=== PATIENT | female | born 1955 | race Caucasian/White ===

== ENCOUNTER 2024-05-04 03:02 | Emergency (ER) | payer OTHER ==
--- OUTSIDE RECORDS SUMMARY | 2024-05-04 03:06 | XMS REPORT | Clinical Summary ---
Author Name Unknown Organization [facility] Address [address] [place] [address] Care Team Providers Care Fashion Adviser Name Role Phone Courtney Will MD Unavailable [phone] Ariana Ewing MD Unavailable [phone] Hermes Barnhart MD Primary Care Provider [phone] Ariana Ewing MD Unavailable [phone] Gary Ross MD Unavailable [phone] Rhona Shoemaker MD Unavailable [phone] Beny Gamboa MD Unavailable [phone] Allergies No known active allergies Medications * This document contains information received from the source organization and may not represent a complete record from that organization. lisinopril (PRINIVIL,ZESTR IL) 10 mg tablet Take 1 tablet (10 mg) by mouth daily. 2 Active levothyroxine (SYNTHROID, LEVOTHROID) 75 mcg tablet Take 1 tablet (75 mcg) by mouth daily. 2 Active Synjardy XR 25-1,000 mg TBph Take 1 tablet by mouth daily. Currently on hold; Pt reports last dose 10/08 2 Active escitalopram (LEXAPRO) 20 mg tablet Take 0.5 tablets (10 mg) by mouth every evening. Active calcium carbonate-vitam in D3 500 mg - 200 units (1,250 mg calcium carbonate) tablet Take 1 tablet by mouth 2 (two) times a day with meals. Active multivitamin capsule Take 1 capsule by mouth daily. Active linaGLIPtin (Tradjenta) 5 mg tab Take 1 tablet (5 mg) by mouth daily. Active anastrozole (ARIMIDEX) 1 mg tabletIndicatio ns:Lobular carcinoma, NOS of upper-inner quadrant of breast <Female; Left>,Estrogen receptor positive status (ER+) Take 1 tablet (1 mg) by mouth daily. 90 tablet 3 4 Active anastrozole (ARIMIDEX) 1 mg tabletIndicatio ns:Lobular carcinoma, NOS of upper-inner quadrant of breast <Female; Left>,Estrogen receptor positive status (ER+) TAKE 1 TABLET BY MOUTH EVERY DAY 90 tablet 3 3 11/22/19 24 Discontinu ed(Reorder ) Rybelsus 7 mg tablet 1 tablet at least 30 minutes before first food, beverage or other oral medicine of the day Orally Once a day for 90 days 4 03/09/20 24 Discontinu ed(Alterna te therapy) anastrozole (ARIMIDEX) 1 mg tabletIndicatio ns:Lobular carcinoma, NOS of upper-inner quadrant of breast <Female; Left>,Estrogen receptor positive status (ER+) Take 1 tablet (1 mg) by mouth daily. 90 tablet 3 4 12/02/19 24 Discontinu ed(Reorder ) Active Problems Problem Noted Date Diagnosed Date History of external beam radiation therapy 08/05 Hypertension 09/17/2021 Cardiac murmur 09/17/2021 Type 2 diabetes mellitus with hyperglycemia 08/28 Mild depression 09/17/2021 Estrogen receptor positive status (ER+) 08/20/19 Overview (08/19/2021): Added automatically from request for surgery [id number] Other abnormal and inconclus selena findings on diagnostic imaging of breast 07/30/2021 Lobular carcinoma, NOS of up per-inner quadrant of breast <Female; Left> 07/30/2021 Cancer Staging:Clinical stage from 06/03/2021:Stage IB(cT2, cN0, cM0, G2, ER+, OR+, HER2-) - Signed by Jeovany Castellanos NP on 10/31/2021 Pathologic stage from 10/13/2021: pT1c, pN1a, cM0, G2, ER: Not Assessed, OR: Not Assessed, HER2: Not Assessed - Signed by Jeovany Castellanos NP on 10/31/2021 Encounters * This document contains information received from the source organization and may not represent a complete record from that organization. Date Type Department Care Team Description 03/09/2024 1:00 PM HOUSING COORDINATOR Follow-Up [facility] [place] [facility] [address] [place] [address], 5th [place] [address] Siena Garcia, PAROLE HEARING OFFICER Lobular carcinoma, NOS of upper-inner quadrant of breast <Female; Left> (Primary Dx) 03/09/2024 10:22 AM HOUSING COORDINATOR - 03/09/2024 11:59 PM HOUSING COORDINATOR Hospital Encounter Nuclear Medicine [address] [place] [address], 6th Floor, [place] [address] Siena Garcia, PAROLE HEARING OFFICER Lobular carcinoma, NOS of upper-inner quadrant of breast <Female; Left>; intermediate current use of aromatase inhibitor; Osteoporosis screening Discharge Disposition: Home 03/09/2024 Travel 12/02/2023 Orders Only Breast [facility] [address] [place] [address], 5th Floor [facility] [place] [address] Siena Garcia, PAROLE HEARING OFFICER Lobular carcinoma, NOS of upper-inner quadrant of breast <Female; Left>; Estrogen receptor positive status (ER+) 11/22/2023 Orders Only Breast [facility] [address] [place] [address], 5th Floor [facility] [place] [address] Rhona Lofton, PAROLE HEARING OFFICER Lobular carcinoma, NOS of upper-inner quadrant of breast <Female; Left>; Estrogen receptor positive status (ER+) 11/22/2023 Refill Breast [facility] [address] [place] [address], 5th [place] [address] Gurvinder Matute, RN Lobular carcinoma, NOS of upper-inner quadrant of breast <Female; Left>; Estrogen receptor positive status (ER+) 11/16/2023 Refill [facility] [place] [facility] [address] [place] [address], 5th [place] [address] Hermes Barnhart MD Lobular carcinoma, NOS of upper-inner quadrant of breast <Female; Left>; Estrogen receptor positive status (ER+) 08/05/2023 10:23 AM CDT - 08/05/2023 11:59 PM CDT Hospital Encounter Radiation Oncology [address] [place] [address], 1st [place] [address] Beny Gamboa MD Lobular carcinoma, NOS of upper-inner quadrant of breast <Female; Left>; History of external beam radiation therapy Discharge Disposition: Home 08/05/2023 9:24 AM CDT - 08/05/2023 10:22 AM CDT Hospital Encounter Breast Imaging [address] [place] [address], 5th Floor [facility] [place] [address] Liz Sorto, AWA Lobular carcinoma, NOS of upper-inner quadrant of breast <Female; Left>; History of external beam radiation therapy Discharge Disposition: Home 08/05/2023 8:23 AM CDT - 08/05/2023 9:23 AM CDT Hospital Encounter Breast Imaging [address] [place] [address], 5th Floor [facility] [place] [address] Liz Sorto, AWA Lobular carcinoma, NOS of upper-inner quadrant of breast <Female; Left>; History of external beam radiation therapy Discharge Disposition: Home 08/05/2023 Orders Only [facility] [place] [facility] [address] [place] [address], 5th [place] [address] Siena Garcia, PAROLE HEARING OFFICER Lobular carcinoma, NOS of upper-inner quadrant of breast <Female; Left> (Primary Dx); 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 OR MASTECTOMY PARTIAL 10/13/2021 Breast/Left Procedure: SEGMENTAL MASTECTOMY - MAG SEED LOC; Surgeon: Ariana Ewing MD; Location: [facility]; Service: BREAST OR INTRAOP SENTINEL LYMPH NODE ID W/DYE INJECTION 10/13/2021 Axilla/Left Procedure: INTRAOPERATIVE LYMPHATIC MAPPING; Surgeon: Ariana Ewing MD; Location: [facility]; Service: BREAST OR BX/EXC LYMPH NODE OPEN DEEP AXILLARY NODE 10/13/2021 Axilla/Left Procedure: SENTINEL NODE BIOPSY - AXILLA; Surgeon: Ariana Ewing MD; Location: [facility]; Service: BREAST OR ADJACENT TISSUE TRANSFER/REARGMT TRUNK 10 SQCM/< 10/13/2021 Breast/Left Procedure: REARRANGEMENT OF ADJACENT TISSUE FOR REPAIR OF DEFECT OF TRUNK; Surgeon: Gary Ross MD; Location: [facility]; Service: PLS - PLASTIC SURGERY OR MASTOPEXY 10/13/2021 Breast/Bilateral Procedure: MASTOPEXY; Surgeon: Gary Ross MD; Location: [facility]; Service: PLS - PLASTIC SURGERY Medical History Medical History Date Comments Hypertension 2200 Control Disorder of thyroid gland 2014 Graves Depressive disorder 2017 Control Psoriasis 1995 Hands Cyst of breast rt Diabetes mellitus 2010 2017 Breast cancer Family History * Patient is adopted Medical History Relation Name Comments Lung cancer Maternal Grandfather Cancer Maternal Grandmother Possibl e colon cancer Stomach cancer Paternal Grandmother Cecily Zamora Diagn osed in her 70s Breast cancer Sister 1 Kun Corona Thyroid cancer Sister 1 Kun Corona Ovarian cancer Neg Hx Relation Name Status Comments Father Granddaughter Alive Grandson Alive Half-Brother Alive Maternal Grandfather Maternal Grandmother Mother Niece 1 Alive Niece 2 (Age 27) Niece 3 Alive Other 1 Alive Other 2 Alive Paternal Grandmother Cecily Zamora (Age 70s) Sister 1 Kun Corona (Age 37) Sister 2 Alive Son 1 Alive Son 2 (Age 29) Social History Tobacco Use Types Packs/Day Years Used Date Smoking Tobacco: Never Smokeless Tobacco: Never Alcohol Use Standard Drinks/Week Comments Yes 0 (1 standard drink = 0.6 oz pur e alcohol) Light beer Education Answer Date Recorded What is the highest level of school you have completed or the highest degree you have received? 12th grade 08/13/2021 Comments No Sex and Gender Information Value Date Recorded Sex Assigned at Female 07/28/2021 3:57 PM CDT Legal Sex Female 4:52 PM CDT Gender Identity Female 07/28/2021 3:57 PM CDT Sexual Orientation Not on file Occupation Industry Job Start Date Job End Date Not on file Not on file Not on file Not on file Obstetrics History Para Term AB IAB SAB Ectopic Multiple Livin g Live Births 2 2 1 2 2 Date Outcome GA Total Labor Labor/2nd/3rd Weight Sex Type Anes PTL Naomi A1 A5 Name Clin 1982 Para M CS-LT ranv Living 1985 Term M CS-LT ranv Living Comments Menarche: 15 Parity: 25 OBC: None Hormonal Therapy: None Last Pap: 06/2021 (OS) Abnormal Pap: None Last Jorge: 06/03/2021 (OS) Last Colon: 2018 (OS), per patient polyps return in 3 years for follow up 9 months Bra Size 36D Last Filed Vital Signs Vital Sign Reading Time Taken Comments Blood Pressure 112/70 03/09/2024 12:20 PM HOUSING COORDINATOR Pulse 83 03/09/2024 12:20 PM HOUSING COORDINATOR Temperature 36.7 C (98.1 F) 03/09/2024 12:[address] Respiratory Rate 20 03/09/2024 12:20 PM HOUSING COORDINATOR Oxygen Saturation 98% 03/09/2024 12:20 PM HOUSING COORDINATOR Inhaled Oxygen Concentration - - Weight 57 kg (125 lb 10.6 oz) 03/09/2024 10:50 A M HOUSING COORDINATOR Height 152.4 cm (5') 03/09/2024 10:50 AM HOUSING COORDINATOR Body Mass Index 24.54 03/09/2024 10:50 AM HOUSING COORDINATOR Plan of Treatment Upcoming Encounters Date Type Department Care Team (Late st Contact Info) Description 08/10/2024 2:00 PM CDT Appointment Breast Imaging [address] [facility], 5th [place] [address] Siena Garcia M, PAROLE HEARING OFFICER [address] [place] [address] [email or web address] 08/10/2024 3:00 PM CDT Appointment Breast Imaging [address] [facility], 5th [place] [address] Siena Garcia, PAROLE HEARING OFFICER [address] [place] [address] [email or web address] 08/10/2024 4:00 PM CDT Follow-Up [facility] - [facility] Oncology [address] [facility], 5th [place] [address] Siena Garcia, PAROLE HEARING OFFICER [address] [place] [address] [email or web address] Maintenance Due Date Last Done Comments Pneumococcal Vaccine: 50+ Ye ars (1 of 1 - PCV) 12/20/2007 COVID-19 Vaccine (2023-2 5 season) 2023 07/21/2021, 01/31/2021, 06/11/2020, Additional history exists Influenza Vaccine (#1) 2023 Procedures Procedure Name Priority Date/Time Associated Diagnosis Comments DEXA BONE MINERAL DENSITY BOTH HIPS AND SPINE Routine 03/09/2024 11:06 AM HOUSING COORDINATOR Lobular carcinoma, NOS of upper-inner quadrant of breast <Female; Left> 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 Osteoporosis screening US CHEST Routine 08/05/2023 10:17 AM CDT Lobular carcinoma, NOS of upper-inner quadrant of breast <Female; Left> History of external beam radiation therapy US BREAST COMPLETE LEFT Routine 08/05/2023 10:17 AM CDT Lobular carcinoma, NOS of upper-inner quadrant of breast <Female; Left> History of external beam radiation therapy MAMMO DIGITAL DIAGNOSTIC BILATERAL W SOCRATES Routine 08/05/2023 9:23 AM CDT Lobular carcinoma, NOS of upper-inner quadrant of breast <Female; Left> History of external beam radiation therapy after 05/05/2023 Results * NM Bone Mineral Density Both Hips and Spine (03/09/2024 11:06 AM HOUSING COORDINATOR) Anatomical Region Laterality Modality Spine Nuclear Medicine 03/09/2024 11:0 8 AM HOUSING COORDINATOR Impressions 03/09/2024 11:10 AM HOUSING COORDINATOR Osteopenia based on measurements of the lumbar spine. Statistically significant decrease in bone mineral density within bilateral total hips and right femoral neck since the prior study dated 03/11/2023. I personally reviewed these image(s) along with the resident's/fellow's interpretations, certify that if a procedure was performed I was physically present, and agree with the final report. Narrative 03/09/2024 11:10 AM HOUSING COORDINATOR FULL RESULT: Examination: Bone Mineral Density (DXA), 03/09/2024 Clinical History: 68-year-old postmenopausal female with breast carcinoma. Indication: Assessment of bone mineral density.. Comparison: Bone mineral density study dated 03/11/2023. Technique: Bone mineral density was obtained using Hologic dual-energy X-ray absorptiometry. Findings: The findings are provided in the below table(s). Bone Density: Region Exam Date BMD T- Z- g/cm2 Score Score AP Spine (L1-L4) 03/09/2024 0.886 -1.5 0.4 Femoral Neck (Left) 03/09/2024 0.784 -0.6 1.0 Total Hip (Left) 03/09/2024 0.873 -0.6 0.7 Femoral Neck (Right) 03/09/2024 0.780 -0.6 1.0 Total Hip (Right) 03/09/2024 0.853 -0.7 0.6 For postmenopausal women and men age 50 and over, the World Health Organization criteria for BMD interpretation classify patients as: Normal (T-score at or above -1.0), Osteopenia (T-score between -1.0 and -2.5), or Osteoporosis (T-score at or below -2.5). Previous Exams: Region Exam Age BMD T-score BMD Change vs Date g/cm2 Baseline Previous AP Spine (L1-L4) 03/09/2024 68 0.886 -1.5 -4.0%* -2.4% 03/11/2023 67 0.908 -1.3 -1.7% -1.7% 12/12/2021 65 0.923 -1.1 Total Hip(Left) 03/09/2024 68 0.873 -0.6 -4.8%* -5.8%* 03/11/2023 67 0.927 -0.1 1.1% 1.1% 12/12/2021 65 0.917 -0.2 Femoral Neck(Left) 03/09/2024 68 0.784 -0.6 3.8% -2.4% 03/11/2023 67 0.803 -0.4 6.4%* 6.4%* 12/12/2021 65 0.755 -0.9 Total Hip(Right) 03/09/2024 68 0.853 -0.7 -3.8%* -5.3%* 03/11/2023 67 0.901 -0.3 1.5% 1.5% 12/12/2021 65 0.887 -0.4 Femoral Neck(Right) 03/09/2024 68 0.780 -0.6 -2.3% -6.7%* 03/11/2023 67 0.836 -0.1 4.7% 4.7% 12/12/2021 65 0.798 -0.5 *Denotes significance at 95% confidence level, site specific LSC for AP Spine = 0.029 g/cm2, site specific LSC for Total Hip = 0.033 g/cm2, site specific LSC for Femoral Neck = 0.045 g/cm2, LSC for 1/3 Forearm = 0.023 g/cm2 Procedure Note Pavan Galeas MD - 03/09/2024 FULL RESULT: Examination: Bone Mineral Density (DXA), 03/09/2024 Clinical History: 68-year-old postmenopausal female with breastcarcinoma. Indication: Assessment of bone mineral density.. Comparison: Bone mineral density study dated 03/11/2023. Technique: Bone mineral density was obtained using Hologic [id number]-[id number]-gib absorptiometry. Findings: The findings are provided in the below table(s). Bone Density: Region Exam Date BMD T- Z- g/cm2 Score Score AP Spine (L1-L4) 03/09/2024 0.886 -1.5 0.4 Femoral Neck (Left) 03/09/2024 0.784 -0.6 1.0 Total Hip (Left) 03/09/2024 0.873 -0.6 0.7 Femoral Neck (Right) 03/09/2024 0.780 -0.6 1.0 Total Hip (Right) 03/09/2024 0.853 -0.7 0.6 For postmenopausal women and men age 50 and over, the World Health Organization criteria for BMD interpretation classify patients as: Normal (T-score at or above -1.0), Osteopenia (T-score between -1.0 and -2.5), or Osteoporosis (T-score at or below -2.5). Previous Exams: Region Exam Age BMD T-score BMD Change vs Date g/cm2 Baseline Previous AP Spine (L1-L4) 03/09/2024 68 0.886 -1.5 -4.0%* -2.4% 03/11/2023 67 0.908 -1.3 -1.7% -1.7% 12/12/2021 65 0.923 -1.1 Total Hip(Left) 03/09/2024 68 0.873 -0.6 -4.8%* -5.8%* 03/11/2023 67 0.927 -0.1 1.1% 1.1% 12/12/2021 65 0.917 -0.2 Femoral Neck(Left) 03/09/2024 68 0.784 -0.6 3.8% -2.4% 03/11/2023 67 0.803 -0.4 6.4%* 6.4%* 12/12/2021 65 0.755 -0.9 Total Hip(Right) 03/09/2024 68 0.853 -0.7 -3.8%* -5.3%* 03/11/2023 67 0.901 -0.3 1.5% 1.5% 12/12/2021 65 0.887 -0.4 Femoral Neck(Right) 03/09/2024 68 0.780 -0.6 -2.3% -6.7%* 03/11/2023 67 0.836 -0.1 4.7% 4.7% 12/12/2021 65 0.798 -0.5 *Denotes significance at 95% confidence level, site specific LSC for APSpine = 0.029 g/cm2, site specific LSC for Total Hip = 0.033 g/cm2, sitespecific LSC for Femoral Neck = 0.045 g/cm2, LSC for 1/3 Forearm = 0.023 g/cm2 IMPRESSION: Osteopenia based on measurements of the lumbar spine. Statistically significant decrease in bone mineral density withinbilateral total hips and right femoral neck since the prior study dated105/12/2022. I personally reviewed these image(s) along with the resident's/fellow'sinterpretations, certify that if a procedure was performed I wasphysically present, and agree with the final report. us Misaelcelestino Campos Garcia PAROLE HEARING OFFICER IMG DXA ORDERABLES Final R esult * US Chest for Breast Ultrasound (Add-on Only) (08/05/2023 10:17 AM CDT) Anatomical Region Laterality Modality Chest Bilateral Ultrasound 08/05/2023 10:4 3 AM CDT Impressions 08/05/2023 10:51 AM CDT There is no sonographic evidence of recurrence in the left breast or left regional danika basins. ACR BI-RADS Category: 2. Benign. Recommend annual mammography. Narrative 08/05/2023 10:51 AM CDT FULL RESULT: Examination: US BREAST COMPLETE LEFT, US CHEST 08/05/2023 10:17 AM Clinical History: 67-year-old woman with history of invasive lobular carcinoma, status post segmental mastectomy Indication: Personal history of malignant neoplasm of breast Comparison: Mammogram performed earlier in the day. Technique: Real-time sonographic imaging of the left breast (including all 4 quadrants and retroareolar region) was performed. Ultrasound imaging was performed of the left axilla (levels I, II, and III) and left chest/mediastinum (to evaluate the internal mammary lymph nodes). Images were obtained in multiple scanning planes. Findings: Left breast: A postsurgical scar is identified at 10 - 12 o'clock position, 4 cm from the nipple. Reminder of the left breast is unremarkable. Left regional danika basins: No suspicious axillary (level I, II & III) or internal mammary lymphadenopathy is noted. Procedure Note Sofia Mckeon MD - 08/05/2023 FULL RESULT: Examination: US BREAST COMPLETE LEFT, US CHEST 08/05/2023 10:17 AM Clinical History: 67-year-old woman with history of invasive lobularcarcinoma, status post segmental mastectomy Indication: Personal history of malignant neoplasm of breast Comparison: Mammogram performed earlier in the day. Technique: Real-time sonographic imaging of the left breast (including all4 quadrants and retroareolar region) was performed. Ultrasound imaging wasperformed of the left axilla (levels I, II, and III) and leftchest/mediastinum (to evaluate the internal mammary lymph nodes). Imageswere obtained in multiple scanning planes. Findings: Left breast: A postsurgical scar is identified at 10 - 12 o'clockposition, 4 cm from the nipple. Reminder of the left breast isunremarkable. Left regional danika basins: No suspicious axillary (level I, II & III) orinternal mammary lymphadenopathy is noted. IMPRESSION: There is no sonographic evidence of recurrence in the left breast or leftregional danika basins. ACR BI-RADS Category: 2. Benign. Recommend annual mammography. Liz Sorto APRN [facility] [place] ORDERABLES Final Resu lt * US Breast Complete Left (08/05/2023 10:17 AM CDT) Anatomical Region Laterality Modality Breast Left Ultrasound 08/05/2023 10:4 3 AM CDT Impressions 08/05/2023 10:51 AM CDT There is no sonographic evidence of recurrence in the left breast or left regional danika basins. ACR BI-RADS Category: 2. Benign. Recommend annual mammography. Narrative 08/05/2023 10:51 AM CDT FULL RESULT: Examination: US BREAST COMPLETE LEFT, US CHEST 08/05/2023 10:17 AM Clinical History: 67-year-old woman with history of invasive lobular carcinoma, status post segmental mastectomy Indication: Personal history of malignant neoplasm of breast Comparison: Mammogram performed earlier in the day. Technique: Real-time sonographic imaging of the left breast (including all 4 quadrants and retroareolar region) was performed. Ultrasound imaging was performed of the left axilla (levels I, II, and III) and left chest/mediastinum (to evaluate the internal mammary lymph nodes). Images were obtained in multiple scanning planes. Findings: Left breast: A postsurgical scar is identified at 10 - 12 o'clock position, 4 cm from the nipple. Reminder of the left breast is unremarkable. Left regional danika basins: No suspicious axillary (level I, II & III) or internal mammary lymphadenopathy is noted. Procedure Note Sofia Mckeon MD - 08/05/2023 FULL RESULT: Examination: US BREAST COMPLETE LEFT, US CHEST 08/05/2023 10:17 AM Clinical History: 67-year-old woman with history of invasive lobularcarcinoma, status post segmental mastectomy Indication: Personal history of malignant neoplasm of breast Comparison: Mammogram performed earlier in the day. Technique: Real-time sonographic imaging of the left breast (including all4 quadrants and retroareolar region) was performed. Ultrasound imaging wasperformed of the left axilla (levels I, II, and III) and leftchest/mediastinum (to evaluate the internal mammary lymph nodes). Imageswere obtained in multiple scanning planes. Findings: Left breast: A postsurgical scar is identified at 10 - 12 o'clockposition, 4 cm from the nipple. Reminder of the left breast isunremarkable. Left regional danika basins: No suspicious axillary (level I, II & III) orinternal mammary lymphadenopathy is noted. IMPRESSION: There is no sonographic evidence of recurrence in the left breast or leftregional danika basins. ACR BI-RADS Category: 2. Benign. Recommend annual mammography. us Liz Sorto APRN [facility] [place] ORDERABLES Final Resu lt * Mammography Digital Diagnostic Bilateral with Socrates (08/05/2023 9:23 AM CDT) Anatomical Region Laterality Modality Breast Bilateral Mammography 08/05/2023 9:37 AM CDT Impressions 08/05/2023 9:37 AM CDT 1: Post surgical scar in the left breast upper hemisphere at 12 o'clock located 4 centimeters from the nipple is benign. Ultrasound is scheduled to follow. 2: Coarse heterogeneous calcifications in the left breast upper outer quadrant at 2 o'clock are benign. 3: Post surgical scar in the left axilla is benign. 4: Stable benign appearing calcifications in the right breast are benign. Follow-up mammogram in 1 year is recommended. BI-RADS Category 2: Benign Finding(s) Narrative 08/05/2023 9:37 AM CDT CLINICAL INDICATION: Patient is a 67 year old female and is seen for history of breast cancer MAMMO DIGITAL DIAGNOSTIC BILATERAL W SOCRATES Digital Mammogram evaluated with Computer Aided Detection (CAD). COMPARISON: The present examination has been compared to prior imaging studies performed at an outside location on 10/18/2018, 06/03/2021 and 07/02/2021, and at [facility] on 07/30/2021 and 08/05/2022. FINDINGS: The breasts are heterogeneously dense, which may obscure small masses. 1: There is a post surgical scar in the left breast upper hemisphere at 12 o'clock located 4 centimeters from the nipple. Segmentectomy was performed for ILC on 10/13/2021. There is no mammographic evidence of recurrence. 2: There are coarse heterogeneous calcifications with associated stereotactic clip in the left breast upper outer quadrant at 2 o'clock. This clip denotes the site of prior benign biopsy. 3: There is a post surgical scar with associated surgical clips in the left axilla. 4: There are stable benign appearing calcifications in the right breast. Tomosynthesis performed in CC and MLO projections. Procedure Note Sofia Mckeon MD - 08/05/2023 CLINICAL INDICATION: Patient is a 67 year old female and is seen for history of breast cancer MAMMO DIGITAL DIAGNOSTIC BILATERAL W SOCRATES Digital Mammogram evaluated with Computer Aided Detection (CAD). COMPARISON: The present examination has been compared to prior imaging studiesperformed at an outside location on 10/18/2018, 06/03/2021 and 07/02/2021, and at [facility] on 07/30/2021 and 08/05/2022. FINDINGS: The breasts are heterogeneously dense, which may obscure small masses. 1: There is a post surgical scar in the left breast upper hemisphere at12 o'clock located 4 centimeters from the nipple. Segmentectomy wasperformed for ILC on 10/13/2021. There is no mammographic evidence of recurrence. 2: There are coarse heterogeneous calcifications with associatedstereotactic clip in the left breast upper outer quadrant at 2 o'clock. This clipdenotes the site of prior benign biopsy. 3: There is a post surgical scar with associated surgical clips in theleft axilla. 4: There are stable benign appearing calcifications in the rightbreast. Tomosynthesis performed in CC and MLO projections. IMPRESSION: 1: Post surgical scar in the left breast upper hemisphere at 12 o'clocklocated 4 centimeters from the nipple is benign. Ultrasound is scheduled tofollow. 2: Coarse heterogeneous calcifications in the left breast upper outerquadrant at 2 o'clock are benign. 3: Post surgical scar in the left axilla is benign. 4: Stable benign appearing calcifications in the right breast arebenign. Follow-up mammogram in 1 year is recommended. 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 PCP - General Breast Medical Oncology 09/17/21 Ariana Ewing MD [address] [place] [id number] [email or web address] Physician Breast Surgery 09/17/21 Ariana Ewing MD [address] [place] [id number] [email or web address] Physician Breast Surgery 09/17/21 Gary Ross MD [address] [place] [id number] [email or web address] Consulting Physician Plastic and Reconstructive Surgery 09/10/21 Rhona Shoemaker MD [address] [place] [address] [email or web address] Consulting Physician Internal Medicine 09/17/21 Beny Gamboa MD [address] [place], [place] [id number] [email or web address] Consulting Physician Radiation Oncology 11/05/21
[2024-05-04] MEDS ORDERED: ONDANSETRON 4 MG/2 ML VIAL ONE (03:58)
[2024-05-04] MEDS ORDERED: MORPHINE 4 MG/ML SYR ONE (03:59)
[2024-05-04] MEDS ORDERED: FAMOTIDINE 20 MG/2 ML VIAL IV ONE (04:00)
[2024-05-04] MEDS ORDERED: NA CHLORIDE 0.9% 500 ML ONE (04:01)
[2024-05-04 04:20] LABS: MCH 29.1 pg (27.0-35.0); Nucleated Red Blood Cells % 0.1 % (0-0)
[2024-05-04 04:26] LABS: Absolute Lymphocytes (CBC) 0.5 K/uL (0.7-4.9); Absolute Neutrophil 17.8 K/uL (1.8-8.0); Basophils % 0.2 % (0-1.3); Hemoglobin 15.5 g/dL (12.0-15.0); Lymphocytes % 2.5 % (15.3-44.8); MCV 87.9 fL (80-100); MPV 8.6 fL (7.6-11.3); Neutrophils % 92.3 % (41.7-73.7); Platelets 297 thou/uL (152-406); RBC Red Blood Cell Count 5.34 M/uL (3.86-4.86); Red Cell Distribution Width 13.6 % (12.1-15.2)
[2024-05-04 04:40] LABS: Albumin 4.1 g/dL (3.4-5.0); Anion Gap 12.5 mEq/L (5.0-15.0); Bilirubin Total 0.7 mg/dL (0.2-1.0); Globulin 4.1 g/dL (2.3-3.5); Potassium 3.5 mEq/L (3.5-5.1); Protein, Total 8.2 g/dL (6.4-8.2)
[2024-05-04 04:55] LABS: PT Prothrombin Time 13.5 SECONDS (9.4-12.5); PTT, Activated Partial Thromb 30.7 SECONDS (24.3-36.9); Protime INR 1.29
[2024-05-04] MEDS ORDERED: CEFTRIAXONE 1000 MG/VIAL ONE (05:16)
--- NOTE | 2024-05-04 07:01 | RAD REPORT ---
CT ABDOMEN PELVIS WITH IV CONTRAST CLINICAL INDICATION: Abdominal pain COMPARISON: Gallbladder ultrasound performed on same day TECHNIQUE: CT images of the abdomen and pelvis obtained following administration of intravenous contr ast. Multiplanar reformats were provided. Dose-optimization techniques such as automated exposure control, iterative reconstruction, and mA and/or kV adjustment for patient size was utilized for this examination. FINDINGS: LOWER CHEST: Unremarkable. LIVER: Unremarkable. BILIARY: Unremarkable. No radiopaque gallstones. No biliary ductal dilatation. PANCREAS: Pancreas is edematous with peripancreatic stranding and trace fluid, more so at body, lorna tible with acute pancreatitis. There is a 2.2 x 1.4 x 1.9 cm ovoid low-attenuation area near pancreatic neck on series 201 image 26 and series 203 image 15, suspicious for developing necrotic co llection. The proximal pancreatic duct is mildly dilated, measuring up to 6 mm in diameter. Intraluminal heterogeneity in dilated proximal pancreatic duct is suspicious for sludge. SPLEEN: Unremarkable. ADRENALS: Unremarkable. KIDNEYS/URETERS: Unremarkable. STOMACH: Unremarkable. BOWEL: Mild circumferential wall thickening of duodenum, likely reflecting reactive duodenitis. Intra luminal hyperdensity in the common, ascending colon and terminal ileum may be related to ingested material. No bowel obstruction. APPENDIX: Normal. MESENTERY/PERITONEUM: Trace amount of free fluid in pelvis. No pneumoperitoneum. No focal collection. RETROPERITONEUM: No adenopathy. URINARY BLADDER: Unremarkable. REPRODUCTIVE: Unremarkable. VASCULAR: No aortic aneurysm. Scattered atherosclerotic calcifications of the abdominal and pelvic vasculature. ABDOMINAL/PELVIC WALL: Unremarkable. BONES: Unremarkable. IMPRESSION: 1. Acute pancreatitis with a suspected small developing necrotic collection near pancreatic neck. 2. Mildly dilated proximal pancreatic duct with intraluminal heterogeneity, suspicious for sludge. 3. Reactive duodenitis. Electronically signed by: Justina Cee MD 05/04/2024 06:57 AM [facility] Due to temporary technical issues with the PACS/[employer] reporting system, reports are being chetna d by the in-house radiologist without review as a courtesy to ensure prompt reporting the interpreting radiologist is fully responsible for the content of the report. Transcribed Date/Time: 05/04/2024 7:01 AM
--- NOTE | 2024-05-04 07:27 | ER ---
Nurse's Notes [facility] Name: Rekha Grajeda Age: 68 yrs Sex: Female : 1955 Arrival Date: 05/04/2024 Time: 03:02 Bed 10 Private MD: Diagnosis: Duodenitis;Epigastric abdominal tenderness;Biliary acute pancreatitis-with necrosis;Elevated white blood cell count Presentation: 05/04 03:20 Chief complaint: Patient states: ABDOMINAL PAIN VOMITING AND DIARRHEA SINCE WEDNESDAY AT kl 10 PM NOT RELIEVED BY PRESCRIBED MEDICATION. Coronavirus screen: Vaccine status: Patient reports receiving the 2nd dose of the covid vaccine. Ebola Screen: Patient negative for fever greater than or equal to 101.5 degrees Fahrenheit, and additional compatible Ebola Virus Disease symptoms. Initial Sepsis Screen: Does the patient meet any 2 criteria? No. Patient's initial sepsis screen is negative. Does the patient have a suspected source of infection? No. Patient's initial sepsis screen is negative. Risk Assessment: Do you want to hurt yourself or someone else? Patient reports no desire to harm self or others. 03:20 Method Of Arrival: Wheelchair 03:20 Acuity: SRIDHAR 3 kl 10:30 Onset of symptoms was May 02, 2024. ap3 Triage Assessment: 03:27 General: Appears uncomfortable, ill, slender, well groomed, Behavior is cooperative. kl Pain: Complains of pain in abdomen Pain currently is 10 out of 10 on a pain scale. GI: Reports lower abdominal pain, upper abdominal pain, diarrhea, intolerance of fluids, nausea. Historical: - Allergies: 03:23 No Known Allergies; kl - Home Meds: 03:23 dicyclomine 10 mg Oral capsule 1 cap 3 times per day [Active]; Zofran Oral [Active]; kl Lexapro Oral [Active]; anastrozole 1 mg oral tablet [Active]; Synjardy XR 25-1,000 mg oral tablet,immed \T\ ext release,biphasic 24hr [Active]; atorvastatin 20 mg oral tablet [Active]; levothyroxine 75 mcg tablet [Active]; lisinopril 10 mg Oral tablet [Active]; - PMHx: 03:23 Hypertensive disorder; Hypothyroidism; BREAST CANCER; kl - PSHx: 03:23 Lumpectomy of breast; kl - Immunization history:: Adult Immunizations up to date. - Infectious Disease History:: Denies. - Social history:: Smoking status: Patient denies any tobacco usage or history of. - Family history:: not pertinent. - Hospitalizations: : No recent hospitalization is reported. Screenin:09 [facility] ED Fall Risk Assessment (Adult) History of falling in the last 3 months, kl including since admission No falls in past 3 months (0 pts) Confusion or Disorientation No (0 pts) Intoxicated or Sedated No (0 pts) Impaired Gait Yes (1 pt) Mobility Assist Device Used No (0 pt) Altered Elimination No (0 pt) Score/Fall Risk Level 0 - 2 = Low Risk Oriented to surroundings, Maintained a safe environment. Abuse screen: Denies threats or abuse. Nutritional screening: No deficits noted. Tuberculosis screening: No symptoms or risk factors identified. Assessment: 04:09 General: Appears distressed, uncomfortable, Behavior is cooperative, anxious. Pain: Complains of pain in abdomen Pain currently is 8 out of 10 on a pain scale. Neuro: No deficits noted. Cardiovascular: No deficits noted. Respiratory: No deficits noted. Airway is patent Trachea midline Respiratory effort is even, unlabored, Respiratory pattern is regular, symmetrical. GI: Bowel sounds present X 4 quads. Abdomen is tender to palpation X 4 quads. Reports lower abdominal pain, upper abdominal pain, diarrhea, nausea. : No deficits noted. No signs and/or symptoms were reported regarding the genitourinary system. EENT: No deficits noted. No signs and/or symptoms were reported regarding the EENT system. Derm: No deficits noted. No signs and/or symptoms reported regarding the dermatologic system. 05:05 Reassessment: Patient appears in no apparent distress at this time. No changes from lg3 previously documented assessment. Patient and/or family updated on plan of care and expected duration. Pain level reassessed. Patient is alert, oriented x 3, equal unlabored respirations, skin warm/dry/pink. 07:10 Reassessment: Patient states symptoms have improved. General: Appears in no apparent ap3 distress. comfortable. 10:11 General: report called to [facility]. ap3 Vital Signs: 03:20 BP 118 / 82; Pulse 110; Resp 18; Temp 97.9; Pulse Ox 96% on R/A; kl 05:03 BP 99 / 57; Pulse 103; Resp 15; Pulse Ox 95% on R/A; kmf 07:44 BP 107 / 61; Pulse 103; Pulse Ox 94% ; ap3 ED Course: 03:05 Patient arrived in ED. gm2 03:08 Fernando Morin MD is Attending Physician. rn 03:23 Triage completed. kl 03:45 Inserted saline lock: 22 gauge in right antecubital area, using aseptic technique. kl Blood collected. Flushed with 10 mL NS. 04:05 Ariana Morris, RN is Primary Nurse. lg3 04:08 CBC with Diff Sent. kl 04:08 CMP Sent. kl 04:08 Lipase Sent. kl 04:09 Patient has correct armband on for positive identification. Call light in reach. Side kl rails up X 1. Door closed. Noise minimized. Warm blanket given. 04:21 US Abdomen Limited In Process Unspecified. EDMS 04:26 CT Abd/Pelvis - IV Contrast Only In Process Unspecified. EDMS 05:00 First set of blood cultures drawn by me. vk 05:08 Lactate w/ 2H reflex if indic. Sent. kl 05:08 Ptt, Activated Sent. kl 05:34 EKG done, by ED staff. vk 07:11 No provider procedures requiring assistance completed. ap3 07:11 Arm band placed on right wrist. ap3 07:[address] [facility] transfer center declined due to capacity. bc6 09:16 received acceptance with Rose[facility] for [facility] for Dr. Ishaan Williamson ICU bc6 [id number]. 10:14 Andres with [facility] accepted transfer. bc6 10:30 Patient transferred, IV remains in place. ap3 10:30 Provided Education on: medications prior to administration . ap3 Administered Medications: 04:08 Drug: Famotidine IVP 20 mg IVP once; dilute with 10 mL 0.9% NaCl; give over 2 minutes kl Route: IVP; Site: right antecubital; 04:08 Drug: Ondansetron IVP 4 mg IVP once; over 2 minutes Route: IVP; Site: right antecubital;kl 04:08 Drug: morphine IVP or IV 4 mg IVP once over 4 mins Route: IVP; Infused Over: 4 mins; Site: right antecubital; 05:19 Drug: Rocephin IV 1 grams IV at calculated rate once; Given slow IV push per pharmacy lg3 instructions Route: IV; Rate: calculated rate; Site: right antecubital; 10:19 Follow up: IV Status: Completed infusion ap3 08:04 Drug: NS 0.9% IV 1000 ml IV at 1000 ml once; to be given as a bolus over 60 minutes ap3 Route: IV; Rate: 1000 ml; Site: right antecubital; 10:19 Follow up: IV Status: Completed infusion ap3 08:04 Drug: Piperacillin-Tazobactam IVPB 3.375 grams IVPB once over 60 mins; (mix in NS 100 ap3 mL) Route: IVPB; Infused Over: 60 mins; Site: left antecubital; 10:19 Follow up: IV Status: Completed infusion ap3 08:04 Drug: Pantoprazole IVP 40 mg IVP once Route: IVP; Site: right antecubital; ap3 10:18 Follow up: Response: No adverse reaction ap3 08:05 Drug: morphine IVP or IV 2 mg IVP once over 4 mins Route: IVP; Infused Over: 4 mins; ap3 Site: right antecubital; 10:18 Follow up: Response: No adverse reaction; Pain is decreased ap3 08:30 Drug: NS 0.9% IV 1000 ml IV at 1 bolus Per protocol; to be given as a bolus over 60 ap3 minutes Route: IV; Rate: 1 bolus; Site: left antecubital; 10:19 Follow up: IV Status: Completed infusion ap3 Medication: 07:11 VIS not applicable for this client. ap3 Outcome: 07:26 ER care complete, transfer ordered by MD. mao 10:30 Transferred by ground EMS to [facility], ap3 10:30 Condition: good 10:30 Discharge instructions given to patient, family, Instructed on the need for transfer, 10:31 Patient left the ED. ap3 Signatures: Dispatcher [employer] EDMS Kerry Do RN Migel Horn MD MD cha Nieto, Roman, MD MD rn Prokisch, Amanda, RN RN ap3 Ariana Morris RN RN lg3 Erika Burkett Kimberly Vee [facility] Sarah Dove [facility] Shira Spaulding
--- NOTE | 2024-05-04 07:27 | EDPHYS ---
Physician Documentation [facility] Name: Rekha Grajeda Age: 68 yrs Sex: Female : 1955 Arrival Date: 05/04/2024 Time: 03:02 Bed 10 Private MD: ED Physician Fernando Morin HPI: 05/04 03:54 This 68 yrs old Female presents to ER via Wheelchair with complaints of Abdominal Pain. rn 03:54 The patient presents with abdominal pain in the periumbilical area. Onset: The rn symptoms/episode began/occurred 3 day(s) ago. The symptoms do not radiate. Associated signs and symptoms: Pertinent positives: nausea and vomiting, diarrhea, Pertinent negatives: blood in stools, fever, vomiting blood. Associated signs and symptoms: Pertinent negatives: chest pain. The symptoms are described as achy, crampy. Modifying factors: The symptoms are alleviated by nothing, the symptoms are aggravated by touching the area. Severity of pain: At its worst the pain was moderate in the emergency department the pain is unchanged. The patient has not experienced similar symptoms in the past. Historical: - Allergies: 03:23 No Known Allergies; kl - Home Meds: 03:23 dicyclomine 10 mg Oral capsule 1 cap 3 times per day [Active]; Zofran Oral [Active]; kl Lexapro Oral [Active]; anastrozole 1 mg oral tablet [Active]; Synjardy XR 25-1,000 mg oral tablet,immed \T\ ext release,biphasic 24hr [Active]; atorvastatin 20 mg oral tablet [Active]; levothyroxine 75 mcg tablet [Active]; lisinopril 10 mg Oral tablet [Active]; - PMHx: 03:23 Hypertensive disorder; Hypothyroidism; BREAST CANCER; kl - PSHx: 03:23 Lumpectomy of breast; kl - Immunization history:: Adult Immunizations up to date. - Infectious Disease History:: Denies. - Social history:: Smoking status: Patient denies any tobacco usage or history of. - Family history:: not pertinent. - Hospitalizations: : No recent hospitalization is reported. ROS: 03:54 Constitutional: Negative for fever, chills, and weight loss, Cardiovascular: Negative rn for chest pain, palpitations, and edema, Respiratory: Negative for shortness of breath, cough, wheezing, and pleuritic chest pain, Abdomen/GI: Positive for abdominal pain with vomiting and diarrhea MS/Extremity: Negative for injury and deformity, Skin: Negative for injury, rash, and discoloration, Neuro: Negative for headache, weakness, numbness, tingling, and seizure, Exam: 03:54 Constitutional: This is a well developed, well nourished patient who is awake, alert, rn and in no acute distress. Cardiovascular: Tachycardic, regular. No pulse deficits. Respiratory: No increased work of breathing, no retractions or nasal flaring. Abdomen/GI: Soft, mid abdominal tenderness without masses or peritoneal signs 07:29 ECG was reviewed by the Attending Physician. [facility] Vital Signs: 03:20 BP 118 / 82; Pulse 110; Resp 18; Temp 97.9; Pulse Ox 96% on R/A; kl 05:03 BP 99 / 57; Pulse 103; Resp 15; Pulse Ox 95% on R/A; kmf 07:44 BP 107 / 61; Pulse 103; Pulse Ox 94% ; ap3 MDM: 03:08 Medical Screening Exam initiated rn 07:27 Differential diagnosis: cholecystitis, Cholelithiasis, diverticulitis, gastritis, daylin gastroesophageal reflux disease, Mesenteric ischemia or infarction, non-specific abd pain, pancreatitis, Peptic Ulcer Disease, Perf. Duodenal Ulcer, Ureterolithiasis, urinary tract infection. Data reviewed: vital signs, nurses notes, lab test result(s), EKG, radiologic studies, CT scan, plain films, ultrasound. Consideration of Admission/Observation Escalation of care including admission/observation considered. I considered the following discharge prescriptions or medication management in the emergency department Medications were administered in the Emergency Department. See MAR. Independent interpretation of the following test(s) in the Emergency Department EKG: See my EKG interpretation above. Test considered but Not performed: MRI: no mrcp. Historians other than the Patient: pt well informed. Care significantly affected by the following chronic conditions: Hypertension, Obesity, Cancer. 05/04 03:24 Order name: CBC with Diff; Complete Time: 08:06 rn 05/04 03:24 Order name: CMP; Complete Time: 04:59 rn 05/04 03:24 Order name: Lipase; Complete Time: 04:59 rn 05/04 04:30 Order name: Manual Differential; Complete Time: 08: EDMS 05/04 04:40 Order name: Blood Culture Adult (2) rn 05/04 04:40 Order name: Lactate w/ 2H reflex if indic.; Complete Time: 07:22 rn 05/04 04:40 Order name: Protime (+inr); Complete Time: 04:59 rn 05/04 04:40 Order name: Ptt, Activated rn 05/04 06:57 Order name: CREATININE WHOLE BLOOD; Complete Time: 07:22 EDMS 02 03:24 Order name: CT Abd/Pelvis - IV Contrast Only; Complete Time: 07:22 rn 05/04 03:24 Order name: US Abdomen Limited; Complete Time: 08:06 rn 05/04 03:24 Order name: IV Saline Lock; Complete Time: 04:08 rn 05/04 03:24 Order name: Labs collected and sent; Complete Time: 04:08 rn 05/04 04:40 Order name: Accucheck; Complete Time: 05:20 rn 05/04 04:40 Order name: Cardiac monitoring; Complete Time: 05:08 rn 05/04 04:40 Order name: EKG - Nurse/Tech; Complete Time: 05:20 rn 05/04 04:40 Order name: IV Saline Lock - Large Bore; Complete Time: 05:08 rn 05/04 04:40 Order name: O2 Per Protocol; Complete Time: 05:08 rn 05/04 04:40 Order name: O2 Sat Monitoring; Complete Time: 05:08 rn 05/04 04:40 Order name: Vital Signs; Complete Time: 05:08 rn 05/04 07:42 Order name: IV Saline Lock - Large Bore; Complete Time: 08:05 daylin 05/04 08:07 Order name: NPO; Complete Time: 08:09 [facility] EC:29 Rate is 99 beats/min. Rhythm is regular. QRS Queen is Normal. VT interval is normal. QRS daylin interval is normal. QT interval is normal. No Q waves. T waves are Normal. No ST changes noted. Clinical impression: NSR w/ Non-specific ST/T Changes and No evidence of ischemia. Interpreted by me. Reviewed by me. Administered Medications: 04:08 Drug: Famotidine IVP 20 mg IVP once; dilute with 10 mL 0.9% NaCl; give over 2 minutes kl Route: IVP; Site: right antecubital; 04:08 Drug: Ondansetron IVP 4 mg IVP once; over 2 minutes Route: IVP; Site: right antecubital;kl 04:08 Drug: morphine IVP or IV 4 mg IVP once over 4 mins Route: IVP; Infused Over: 4 mins; kl Site: right antecubital; 05:19 Drug: Rocephin IV 1 grams IV at calculated rate once; Given slow IV push per pharmacy lg3 instructions Route: IV; Rate: calculated rate; Site: right antecubital; 10:19 Follow up: IV Status: Completed infusion ap3 08:04 Drug: NS 0.9% IV 1000 ml IV at 1000 ml once; to be given as a bolus over 60 minutes ap3 Route: IV; Rate: 1000 ml; Site: right antecubital; 10:19 Follow up: IV Status: Completed infusion ap3 08:04 Drug: Piperacillin-Tazobactam IVPB 3.375 grams IVPB once over 60 mins; (mix in NS 100 ap3 mL) Route: IVPB; Infused Over: 60 mins; Site: left antecubital; 10:19 Follow up: IV Status: Completed infusion ap3 08:04 Drug: Pantoprazole IVP 40 mg IVP once Route: IVP; Site: right antecubital; ap3 10:18 Follow up: Response: No adverse reaction ap3 08:05 Drug: morphine IVP or IV 2 mg IVP once over 4 mins Route: IVP; Infused Over: 4 mins; ap3 Site: right antecubital; 10:18 Follow up: Response: No adverse reaction; Pain is decreased ap3 08:30 Drug: NS 0.9% IV 1000 ml IV at 1 bolus Per protocol; to be given as a bolus over 60 ap3 minutes Route: IV; Rate: 1 bolus; Site: left antecubital; 10:19 Follow up: IV Status: Completed infusion ap3 Disposition Summary: 05/04/24 07:26 Transfer Ordered Notes: Reason: Higher level of care daylin Condition: Fair daylin Problem: new daylin Symptoms: have improved daylin Transfer Location: [facility]-System(05/04/24 07:38) daylin Accepting Physician: to higher level(05/04/24 10:31) ap3 Diagnosis - Duodenitis daylin - Epigastric abdominal tenderness daylin - Biliary acute pancreatitis - with necrosis daylin - Elevated white blood cell count daylin Forms: - Medication Reconciliation Form daylin - SBAR form daylin Signatures: Dispatcher [employer] EDMS Kerry Do RN Migel Horn MD MD cha Nieto, Roman, MD MD rn Prokisch, Amanda, RN RN ap3 Ariana Morris RN RN lg3 Corrections: (The following items were deleted from the chart) 04:40 04:40 BLOOD CULTURE*+BA.LAB.BRZ ordered. EDMS EDMS 04:40 04:40 LACTATE+C.LAB.BRZ ordered. EDMS EDMS 04:40 04:40 PROTIME (+INR)+COAG.LAB.BRZ ordered. EDMS EDMS 04:40 04:40 PTT, ACTIVATED+COAG.LAB.BRZ ordered. EDMS EDMS 07:31 07:26 to higher level daylin daylin 07:38 07:26 [facility] daylin daylin 07:38 07:31 to higher level daylin daylin 10:31 07:38 to higher level daylin ap3
[2024-05-04] MEDS ORDERED: PANTOPRAZOLE 40 MG INJ ONE (07:47)
[2024-05-04] MEDS ORDERED: MORPHINE 2 MG/ML SYR ONE (07:48)
[2024-05-04] MEDS ORDERED: NA CHLORIDE 0.9% 1,000 ML ONE (07:48)
[2024-05-04] MEDS ORDERED: PIPERACIL/TAZO 3.375 GM VIAL IV ONE (07:48)
[2024-05-04] MEDS ORDERED: NA CHLORIDE 0.9% 100 ML ONE (07:48)
--- NOTE | 2024-05-04 07:55 | RAD REPORT ---
PROCEDURE: US ABDOMEN LIMITED INDICATION: Abd pain;Nausea / vomiting. COMPARISON: None. TECHNIQUE: Grayscale, color and spectral Doppler ultrasound of the gallbladder was performed. FINDINGS: GALLBLADDER: No sludge or stone. No gallbladder wall thickening or pericholecystic fluid. Negative Mu rphy's sign. COMMON DUCT: The common duct measures 3.4 mm, within normal range. There is no evidence of choledocho lithiasis. Visualized liver is unremarkable. No ascites. IMPRESSION: Negative gallbladder ultrasound. Electronically signed by: Justina Cee MD 05/04/2024 06:39 AM [facility] Due to temporary technical issues with the PACS/[employer] reporting system, reports are being chetna d by the in-house radiologist without review as a courtesy to ensure prompt reporting the interpreting radiologist is fully responsible for the content of the report. Transcribed Date/Time: 05/04/2024 7:54 AM
[2024-05-04 08:05] LABS: Blood Morphology Comment NOT SEEN (NOT SEEN); Differential Total Cells Count 100; Lymphocytes 6 % (15-42); Monocytes 6 % (0-10); Platelet Estimate ADEQ; Segmented Neutrophils 88 % (40-80)
[2024-05-04 10:45] VITALS: TEMP 97.9
[2024-05-04 10:55] VITALS: BP 107/61; O2SAT 94
--- NOTE | 2024-05-04 11:24 | EKG ---
Test Date: 2024-05-04 Test Time: 05:29:44 Commodities Requirements Analyst: [employer] MEASUREMENT RESULTS: Intervals: Rate: 99 WI: 188 QRSD: 90 QT: 374 QTc: 479 Belcher: P: 65 WI: 188 QRS: -85 T: 61 INTERPRETIVE STATEMENTS: Normal sinus rhythm Left axis deviation Abnormal ECG Compared to ECG 04/13/2017 11:44:50 Left-axis deviation now present Left anterior fascicular block no longer present Myocardial infarct finding no longer present Electronically Signed On 05-04-24 11:24:03 [employer] [employer] [facility] by Dennis Garzon
== END 2024-05-04 10:31 | disposition short-term general hospital (02) ==
LOC: ER 03:02
DX: K29.80 Duodenitis without bleeding (principal); K85.11 Biliary acute pancreatitis with uninfected necrosis; D72.829 Elevated white blood cell count, unspecified; I10 Essential (primary) hypertension; E03.9 Hypothyroidism, unspecified; Z85.3 Personal history of malignant neoplasm of breast
CPT/HCPCS: 93005; 87040 ×2; 85025; 36415; 85610; 82565; 83605; 85730; 83690; 80053; 74177; 76705; 99285; Q9967; J2543; J2470; J2270; J2405; J7040; J7030; J0696